=== PATIENT | male | born 1960 | race Caucasian/White ===

== ENCOUNTER 2018-08-03 08:21 | Outpatient (CLI) | END 2018-08-03 08:22 | disposition home or self-care (01) | LOC: RHC-LAB 08:21 → FCC-LAB 08:22 | PROVIDERS: ATTEND Family Medicine | DX: E11.9 Type 2 diabetes mellitus without complications (principal) | CPT/HCPCS: 36415; 83037 ==

== ENCOUNTER → 2023-12-29 11:00 | Observation (INO) ==
[2023-12-28 10:19] VITALS: BMI 65.2
[2023-12-28 10:52] LABS: ABSOLUTE RETICS # 0.0276; RETICULOCYTE % 1.22 %; RETICULOCYTE HEMOGLOBIN 28.1
[2023-12-28 11:19] LABS: IRON 25.1 ug/dL (49-181)
[2023-12-28 11:58] LABS: FOLATE 8.71 ng/mL
[2023-12-28] MEDS: PROTONIX IVP ONE (12:50)
[2023-12-28] MEDS: RIFAMPIN PO SCH (12:50)
[2023-12-28] MEDS: PROTONIX ONE (12:51)
--- NOTE | 2023-12-28 15:29 | PCM ---
Date of Service Date Seen by Provider: 12/28/23 Time Seen by Provider: 09:30 Admit Day/Time Admission Date: 12/28/23 Admission Time: 10:15 Reason for Admission Chief Complaint: ANEMIA Hospital Provider Hospital Provider: CARIN OSPINA PA-C, [facility] Primary Care Physician Primary Care Physician: MERISSA ESCOBAR MD History of Present Illness History of Present Illness: Patient is a 63 year old male with pmhx uncontrolled diabetes, hypertension, history of CABG, history of aortic valve replacement, who was recently hospitalized here for our swing bed program after hospitalization at [facility] from 12 09-12 16 for MSSA bacteremia. He is currently being treated for osteomyelitis of the left second toe and presumptive prosthetic valve endocarditis with cefazolin and rifampin. He was discharged last week from the swing bed program. He was present today to get his antibiotics and to get his weekly labs performed. We were notified by lab that his hemoglobin was 6.3. It was 7.3 last week. He denies any dark stools, abdominal pain, epigastric pain. He does state that he had a hospitalization about a year ago in which he was transfused blood but he is unsure of details of that stay. His vitals are normal. He overall states that he is feeling well. Spoke with Dr. Escobar his PCP via phone regarding the patient. It was decided to direct admit him for further workup and transfusion. Patient is agreeable. Case Discussed With Case Discussed With: Patient's case was discussed with Dr. Escobar. [facility] Medical History BMI 28.0-28.9,adult Z68.28 - Body mass index [BMI] 28.0-28.9, adult (ICD-10) Elevated hemoglobin A1c 9.07 on 06/17/21. Repeat labs requested. R73.09 - Other abnormal glucose (ICD-10) H/O: hypertension Z86.79 - Personal history of other diseases of the circulatory system (ICD- 10) Cervical stenosis of spine Lower extremity hyperreflexic. Chronic/stable. M48.02 - Spinal stenosis, cervical region (ICD-10) Surgical History Hx of cervical spine surgery Z98.890 - Other specified postprocedural states (ICD-10) Hx of replacement of aortic valve Z95.2 - Presence of prosthetic heart valve (ICD-10) H/O cardiac catheterization Z98.890 - Other specified postprocedural states (ICD-10) Family History FATHER , leukemia at age 63. Leukemia PATERNAL GRANDMOTHER Diabetes Mother No problems noted. BROTHER No problems noted. SISTER No problems noted. SISTER No problems noted. 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 Pets and animals: Yes Leisure activites: exercise (walking), hunting and fishing History of recent travel: No Sexually active: Yes Do you think of yourself as: straight/heterosexual Current gender identity: male Seatbelt use: always Drives intoxicated or rides with intoxicated driver's education instructor: No Water heater temperature set < 120 degrees: Yes Working smoke detector in home: Yes Fire extinguisher in home: No Carbon monoxide detector in home: Yes Firearms in home: Yes Allergies Allergies Allergy/AdvReac Type Severity Reaction Status Date / Time No Known Allergies Allergy Verified 09/01/23 07:16 Current Medications Home Medications aspirin 81 mg tablet,delayed release 81 mg PO DAILY 90 days #90 tab-caps 06/30/19 [Rx Confirmed 12/28/23 Last Taken Unknown] semaglutide 1 mg/dose (4 mg/3 mL) subcutaneous pen injector 1 mg (0.75 mL) subcut QWEEK #3 mL 09/01/23 [Rx Confirmed 12/28/23 Last Taken 12/12/23] blood sugar diagnostic (Blood Glucose Test strips) #50 ea 09/07/23 [Rx Confirmed 12/28/23 Last Taken Unknown] blood-glucose meter (Blood Glucose Monitoring kit) #1 ea 09/07/23 [Rx Confirmed 12/28/23 Last Taken Unknown] lancets 33 gauge #100 ea 09/07/23 [Rx Confirmed 12/28/23 Last Taken Unknown] pen needle, diabetic 32 gauge x 5/32" (BD Ultra-Fine Cinda Pen Needle) #50 ea 09/07/23 [Rx Confirmed 12/28/23 Last Taken Unknown] atorvastatin 40 mg tablet (Lipitor) 40 mg PO DAILY 90 days #90 tab-caps 10/07/23 [Rx Confirmed 12/28/23 Last Taken Unknown] empagliflozin 10 mg tablet (Jardiance) 10 mg PO QAM #30 tabs 10/07/23 [Rx Confirmed 12/28/23 Last Taken Unknown] metoprolol succinate 50 mg tablet,extended release 24 hr 50 mg PO QDAY #90 tabs 10/07/23 [Rx Confirmed 12/28/23 Last Taken Unknown] acetaminophen 325 mg capsule 650 mg PO Q6H PRN fever or pain 12/17/23 [History Confirmed 12/28/23 Last Taken Unknown] cefazolin 2 gram intravenous solution 2 g IV Q8H 12/17/23 [History Confirmed 12/28/23 Last Taken Unknown] insulin lispro 100 unit/mL subcutaneous solution (Humalog U-100 Insulin) 1 sliding scale dose subcut QID 12/17/23 [History Confirmed 12/28/23 Last Taken Unknown] insulin glargine 100 unit/mL (3 mL) subcutaneous pen 10 unit (0.1 mL) subcut BEDTIME #100 mL 12/25/23 [Rx Confirmed 12/28/23 Last Taken Unknown] insulin lispro 100 unit/mL subcutaneous pen (Humalog KwikPen (U-100) Insulin) See Protocol subcut PRN PRN hyperglycemia #100 mL 12/25/23 [Rx Confirmed 12/28/23 Last Taken Unknown] rifampin 300 mg capsule 300 mg PO Q8H 30 days #90 caps 12/25/23 [Rx Confirmed 12/28/23 Last Taken Unknown] Home Acetaminophen (Acetaminophen 325 Mg Tablet) 650 mg PO Q4H PRN PRN Reason: Mild Pain Aspirin (Aspirin 81 Mg Tablet.) 81 mg PO DAILY LINDA Atorvastatin Calcium (Atorvastatin Calcium 20 Mg Tablet) 40 mg PO DAILY LINDA Empagliflozin (Empagliflozin 10 Mg Tablet) 10 mg PO QAM [facility] Ferrous Sulfate (Ferrous Sulfate 324 Mg Tablet.Dr) 324 mg PO DAILY [facility] Cefazolin Sodium/Dextrose (Ancef 1 Gm/50 Ml D5w) 2 gm in 100 mls @ 150 mls/hr IV Q8HR [facility] Stop: 12/31/23 12:59 Last Admin: 12/28/23 16:14 Dose: 150 mls/hr Insulin Glargine (Insulin Glargine,Hum.Rec.Anlog 100 Units/Ml) 10 unit SUBCUT BEDTIME [facility] Last Admin: 12/28/23 21:18 Dose: 10 unit Metoprolol Succinate (Metoprolol Succinate 50 Mg Tab.Er.24h) 50 mg PO DAILY [facility] Pantoprazole Sodium (Pantoprazole Sodium 40 Mg Vial) 40 mg IVP DAILY [facility] Rifampin (Rifampin 150 Mg Capsule) 300 mg PO Q8HR [facility] Stop: 12/31/23 12:59 Last Admin: 12/28/23 20:18 Dose: 300 mg Discontinued Medications Pantoprazole Sodium (Pantoprazole Sodium 40 Mg Vial) 40 mg IVP ONCE ONE Stop: 12/28/23 10:36 Last Admin: 12/28/23 12:50 Dose: 40 mg Opioid Naive vs. Tolerant Does Patient Take Opioids?: No What is Opioid Naive?: *Opioid Naive implies the patient is not already taking opioids or not chronically receiving opioids on a daily basis. *PRN dosing is not "usually" associated with tolerance. *Patients are at higher risk of over-sedation and aspiration. What is Opioid Tolerant?: *Opioid Tolerance implies less than the expected response to an opioid. *Acquired tolerance is defined by the patient taking 60mg of oral morphine daily (or equianalgesic dose of another opioid) for 1 week or more. *Often associated with chronic pain. *May take more than usual dose to achieve desired pain control. Review of Systems Constitutional: Denies Fatigue or Weakness Cardiovascular: Denies Chest pain, Chest Pressure or Edema Respiratory: Denies Cough or Shortness of air Gastrointestinal: Denies Nausea, Vomiting, Vomit Coffee Ground Material, Heartburn, Black Tarry Stools, Abdominal pain or Melena Genitourinary: Denies Dysuria or Hematuria Dermatologic: Denies Rashes Neurological: Reports Problems with walking Physical examination Most Recent Vital Signs: Most Recent Vital Signs Temperature 97.8 F 12/28/23 15:13 Temperature Source Oral 12/28/23 09:49 Pulse Rate 77 12/28/23 15:13 Respiratory Rate 16 12/28/23 15:13 Blood Pressure 130/68 12/28/23 15:13 Blood Pressure Mean 88 12/28/23 15:13 Blood Pressure Left Arm 103/60 12/28/23 09:49 Blood Pressure Position Sitting 12/28/23 09:49 O2 Sat by Pulse Oximetry 95 12/28/23 09:49 Oxygen Delivery Method Room Air 12/28/23 15:00 Height 6 ft 12/28/23 10:20 Weight 218 kg 12/28/23 10:20 Telemetry Type Remote Telemetry 12/28/23 15:00 Telemetry Monitoring Continues 12/28/23 15:00 Telemetry Heart Rate 72 12/28/23 15:00 EKG NV Interval 0.24 H 12/28/23 15:00 EKG QRS Interval 0.08 12/28/23 15:00 Telemetry Strip Reading sr w/ 1st degree avb 12/28/23 15:00 Appearance: Positive No Apparent Distress and Alert and Oriented x3 Skin: Positive [place], Warm and Good Turgor; Negative Rashes HEENT: Positive Normocephalic and Atraumatic Neck: Positive Supple and Midline Trachea Chest/Lungs: Positive Clear to Auscultation Bilaterally; Negative Rales, Rhonci or Wheezes Heart: Positive RRR and Murmur GI/: Positive Soft, Nontender, Bowel Sounds Normal and No Distention Extremities: Negative Edema Neurological: Positive Cranial Nerves Intact, Alert and Oriented Psychiatric: Positive Oriented x4, Appropriate Mood and Appropriate Affect Labs This Visit Labs This Visit: Labs This Visit 12/28/23 12/28/23 08:33 10:54 Reticulocyte % (Auto) 1.22 Absolute Retic 0.0276 Retic Hgb Equivalent 28.1 Iron 25.1 L TIBC 175 L % Saturation 14 Ferritin 293.00 Vitamin B12 358 Folate 8.71 Blood Type O POSITIVE Antibody Screen Negative Crossmatch (AHG) See Detail Review Statement Review Statement: I have independently reviewed and interpreted the labs/EKGs/imaging that were ordered by the ER provider. I have reviewed all outside records that are available currently in our EMR including imaging/notes/labs from previous visits. Plan Plan: 1. Acute anemia - Noted on outpatient labs. Anemia panel ordered, iron is low. Will start supplement. Occult stool pending. 1U PRBCs ordered. Check H&H 1 hr after transfusion. Check UA, looking back at [facility] records he consistently has had blood in his urine. 2. Fpc antibiotics for osteomyelitis and possible endocarditis - Cont cefazolin and rifampin, cont outpatient f/u. 3. DMT2 - Diabetic diet, humalog sliding scale 4. Hypertension - Cont home meds 5. Hyperlipidemia - Cont home meds Reviewed hindu records. He was hospitalized last for ROSITA and anemia. No scopes done at that time. May need to f/u outpatient for further work up. DVT Prophylaxis:Ambulation Time Spent: Greater than 80 minutes spent with patient, 50% of the time spent with this patient was devoted to counseling and coordination of care. [facility] Plannin minutes spent discussing advance care planning. Admit to: Obs Discussed Plan of Care with Dr. Sukhdev Parra. Medications Medication Orders: Medications Ordered Category Date Time Status Acetaminophen [Tylenol] Meds 12/28/23 10:32 Active 650 mg PO Q4H PRN Cefazolin Sodium/Dextrose,Iso [Ancef 1 gm/50 ml D5w] Meds 12/28/23 13:00 Active 2 gm in 100 ml IV Q8HR Pantoprazole Sodium [Protonix] Meds 12/29/23 09:00 Active 40 mg IVP DAILY Rifampin Meds 12/28/23 13:00 Active 300 mg PO Q8HR
[2023-12-28 15:58] LABS: HEMATOCRIT 24.1 % (42.0-52.0); HEMOGLOBIN 7.1 g/dl (14.0-18.0)
[2023-12-28] MEDS: ANCEF 1 GM/50 ML D5W 2 GM/100 ML BAG IV SCH (16:14)
[2023-12-28 19:49] LABS: BILIRUBIN,URINE Negative (NEGATIVE); CLARITY,URINE Clear (CLEAR); COLOR,URINE Yellow (YELLOW); GLUCOSE, URINE (UA) 2+ (NEGATIVE); KETONES,URINE Trace (NEGATIVE); LEUKOCYTE ESTERASE ,URINE Negative (NEGATIVE); NITRITE,URINE Negative (NEGATIVE); PH,URINE 5.5 (5-9); PROTEIN,URINE 2+ (NEGATIVE); URINE, BLOOD 2+ (NEGATIVE); UROBILINOGEN,URINE 0.2 (0.2)
[2023-12-28 19:59] LABS: BACTERIA,URINE TRACE (NOT PRESENT); SQUAMOUS EPITHELIAL CELL,UR 0-2 (0-5); URINE WBC, MICROSCOPIC 0-2 (0-2)
[2023-12-28] MEDS: LANTUS SUBCUT SCH (21:18)
[2023-12-29 05:56] LABS: BASOPHILS % (AUTO) 0.7 % (0.0-3.0); EOSINOPHILS # (AUTO) 0.1 K/ul (0.0-0.7); HEMATOCRIT 23.9 % (42.0-52.0); HEMOGLOBIN 7.5 g/dl (14.0-18.0); IMMATURE GRANULOCYTE # (AUTO) 0.1 (0.0-1.0); LYMPHOCYTES # (AUTO) 1.1 K/uL (0.60-3.4); LYMPHOCYTES % (AUTO) 18.8 (10.0-50.0); MEAN CORPUSCULAR HEMOGLOBIN 28.2 pg (27.0-31.0); MEAN CORPUSCULAR HGB CONC 31.4 (31.8-35.4); MEAN CORPUSCULAR VOLUME 89.8 fl (80.0-94.0); MONOCYTES # (AUTO) 0.7 K/uL (0.4-2.0); MONOCYTES % (AUTO) 10.8 (0-10); NEUTROPHILS # (AUTO) 4.1 K/ul (2.0-6.9); NEUTROPHILS % (AUTO) 67.7 % (42.2-75.2); PLATELET COUNT 311 10^3/uL (140-440); RDW COEFFICIENT OF VARIATION 14.2 % (11.6-14.8); RED BLOOD COUNT 2.66 10^6/ul (4.70-6.10)
[2023-12-29 06:09] LABS: ALANINE AMINOTRANSFERASE 6.8 U/L (0-50); ALBUMIN 3.37 g/dL (3.5-5.0); ALKALINE PHOSPHATASE 108.7 U/L (56-119); BILIRUBIN,TOTAL 0.35 mg/dL (0.2-1.3); BLOOD UREA NITROGEN 20.2 mg/dL (9-20); CALCIUM 7.9 mg/dL (8.4-10.2); CARBON DIOXIDE 29.1 mmol/L (22-30.0); CHLORIDE 99.1 mmol/L (98-107); CREATININE 2.03 mg/dL (0.60-1.10); GLUCOSE 118.9 mg/dL (74-106); POTASSIUM 3.96 mmol/L (3.5-5.1); SODIUM 135.6 mmol/L (134.5-145); TOTAL PROTEIN 8.11 g/dL (6.3-8.2)
[2023-12-29] MEDS: ASPIRIN EC PO SCH (08:37)
[2023-12-29] MEDS: PROTONIX IVP SCH (08:37)
[2023-12-29] MEDS: JARDIANCE PO SCH (08:38)
[2023-12-29] MEDS: FERROUS SULFATE PO SCH (08:38)
[2023-12-29] MEDS: LIPITOR PO SCH (08:38)
[2023-12-29] MEDS: TOPROL XL PO SCH (08:38)
[2023-12-29 10:20] VITALS: BP 121/66; PULSE 87; RESP 17; TEMP 98.8
--- NOTE | 2023-12-29 10:40 | DCSUM ---
Admission Date Admission Date: 12/28/23 Discharge Date Discharge Date: 12/29/23 Admission Diagnosis Admission Diagnosis: 1. Acute anemia Discharge Diagnosis Discharge Diagnosis: 1. Acute iron deficiency anemia - improved 2. Usp antibiotics for osteomyelitis and possible endocarditis 3. DMT2 4. Hypertension 5. Hyperlipidemia Hospital Provider Hospital Provider: [facility] Primary Care Physician: MERISSA ESCOBAR MD Summary of History and Physical Summary of History and Physical: Patient is a 63 year old male with pmhx uncontrolled diabetes, hypertension, history of CABG, history of aortic valve replacement, who was recently hospitalized here for our swing bed program after hospitalization at [facility] from 12 09-12 16 for MSSA bacteremia. He is currently being treated for osteomyelitis of the left second toe and presumptive prosthetic valve endocarditis with cefazolin and rifampin. He was discharged last week from the swing bed program. He was present today to get his antibiotics and to get his weekly labs performed. We were notified by lab that his hemoglobin was 6.3. It was 7.3 last week. He denies any dark stools, abdominal pain, epigastric pain. He does state that he had a hospitalization about a year ago in which he was transfused blood but he is unsure of details of that stay. His vitals are normal. He overall states that he is feeling well. Spoke with Dr. Escobar his PCP via phone regarding the patient. It was decided to direct admit him for further workup and transfusion. Patient is agreeable. Hospital Course Subjective: Patient had additional labs drawn prior to receiving 2 units of packed RBCs. Anemia panel indicate iron deficiency with a level of 25. Started on iron supplement daily. UA does indicate some hematuria. Looking back at [facility] records the last 2-3 urinalysis in past year show hematuria as well. We discussed that he could have had a [place] at that time and it simply be traumatic. However would recommend following up on this outpatient and if still showing blood in urine may warrant a referral to urology for further workup. Also discussed to be thorough a colonoscopy and EGD would be recommended. He states he is due for colonoscopy this coming spring anyway. Discussed how this could be anemia of chronic disease given his chronic kidney disease. His hemoglobin has improved to 7.5. His vitals are stable. He is requesting to be discharged to home. Encouraged him to please follow-up with his PCP for close monitoring and to take his iron supplement in the meantime. Patient is agreeable to plan of care. Appearance: No Apparent Distress and Alert HEENT: MMM and Supple CVS: Other (RRR, +murmur ) Abdomen: Soft, Non-Tender and No Distention Respiratory: No Dyspnea Extremities: No Edema Vital Signs: Most Recent Vital Signs Temperature 98.8 F 12/29/23 10:00 Temperature Source Temporal Artery Scan 12/29/23 10:00 Pulse Rate 87 12/29/23 10:00 Respiratory Rate 17 12/29/23 10:00 Blood Pressure 121/66 12/29/23 10:00 Blood Pressure Mean 84 12/29/23 10:00 Blood Pressure Left Arm 103/60 12/28/23 09:49 Blood Pressure Location Right Arm 12/29/23 10:00 Blood Pressure Position Sitting 12/29/23 10:00 O2 Sat by Pulse Oximetry 97 12/29/23 10:00 Oxygen Delivery Method Room Air 12/29/23 10:00 Height 6 ft 12/28/23 10:20 Weight 218 kg 12/28/23 10:20 Telemetry Type Bedside Monitor 12/29/23 01:00 Telemetry Monitoring Continues 12/29/23 01:00 Telemetry Heart Rate 76 12/29/23 01:00 EKG MD Interval 0.23 H 12/29/23 01:00 EKG QRS Interval 0.07 12/29/23 01:00 EKG QT Interval 0.06 L 12/28/23 19:00 Telemetry Strip Reading SR WITH 1ST DEGREE AVB 12/29/23 01:00 Lab Results Last 24 Hours: 12/29/23 12/28/23 12/28/23 05:52 19:40 15:45 WBC 6.00 RBC 2.66 L Hgb 7.5 L 7.1 L Hct 23.9 L 24.1 L MCV 89.8 MCH 28.2 MCHC 31.4 L RDW Coeff of Leslie 14.2 Plt Count 311 Immature Gran % (Auto) 1.0 Neut % (Auto) 67.7 Lymph % (Auto) 18.8 [place] % (Auto) 10.8 H Eos % (Auto) 1.0 Baso % (Auto) 0.7 Reticulocyte % (Auto) Neut # (Auto) 4.1 Lymph # (Auto) 1.1 [place] # (Auto) 0.7 Eos # (Auto) 0.1 Baso # (Auto) 0.0 Immature Gran # (Auto) 0.1 Absolute Retic Retic Hgb Equivalent Sodium 135.6 Potassium 3.96 Chloride 99.1 Carbon Dioxide 29.1 Anion Gap 11.36 BUN 20.2 H Creatinine 2.03 H Estimated GFR (MDRD) 33.00 BUN/Creatinine Ratio 9.95 Glucose 118.9 H D Calcium 7.90 L Iron TIBC % Saturation Ferritin Total Bilirubin 0.35 AST 64.0 H ALT 6.8 Alkaline Phosphatase 108.7 Total Protein 8.11 Albumin 3.37 L Globulin 4.74 Albumin/Globulin Ratio 0.71 Vitamin B12 Folate Urine Color Yellow Urine Clarity Clear Urine pH 5.5 Ur Specific [place] 1.020 Urine Protein 2+ H Urine Glucose (UA) 2+ H Urine Ketones Trace H Urine Blood 2+ H Urine Nitrite Negative Urine Bilirubin Negative Urine Urobilinogen 0.2 Ur Leukocyte Esterase Negative Urine Microscopic RBC 10-20 Urine Microscopic WBC 0-2 Ur Squamous Epith Cells 0-2 Urine Bacteria Trace Blood Type Antibody Screen Crossmatch ([facility]) 12/28/23 12/28/23 10:54 08:33 WBC RBC Hgb Hct MCV MCH MCHC RDW Coeff of Leslie Plt Count Immature Gran % (Auto) Neut % (Auto) Lymph % (Auto) [place] % (Auto) Eos % (Auto) Baso % (Auto) Reticulocyte % (Auto) 1.22 Neut # (Auto) Lymph # (Auto) [place] # (Auto) Eos # (Auto) Baso # (Auto) Immature Gran # (Auto) Absolute Retic 0.0276 Retic Hgb Equivalent 28.1 Sodium Potassium Chloride Carbon Dioxide Anion Gap BUN Creatinine Estimated GFR (MDRD) BUN/Creatinine Ratio Glucose Calcium Iron 25.1 L TIBC 175 L % Saturation 14 Ferritin 293.00 Total Bilirubin AST ALT Alkaline Phosphatase Total Protein Albumin Globulin Albumin/Globulin Ratio Vitamin B12 358 Folate 8.71 Urine Color Urine Clarity Urine pH Ur Specific [place] Urine Protein Urine Glucose (UA) Urine Ketones Urine Blood Urine Nitrite Urine Bilirubin Urine Urobilinogen Ur Leukocyte Esterase Urine Microscopic RBC Urine Microscopic WBC Ur Squamous Epith Cells Urine Bacteria Blood Type O POSITIVE Antibody Screen Negative Crossmatch ([facility]) See Detail Discharge Instructions Discharge Planning: Discharge Planning > [address] Sukhdev Parra. Discharge Medications: Medications at Discharge (Home Meds & RX) Discharge Plan Discharge Discharge Orders: Discharge Patient (ONCE); Ordered 12/29/23 Ordered By: CARIN OSPINA Activity Restrictions/Additional Instructions: DISCHARGE TO HOME DX: ANEMIA YOU WERE GIVEN 2U OF BLOOD F/U WITH DR. ESCOBAR CONSIDER OUTPATIENT UROLOGY F/U CONSIDER OUTPATIENT COLONOSCOPY/EGD FOR FURTHER WORK UP. TAKE IRON SUPPLEMENT DAILY, IT COULD CAUSE YOUR STOOLS TO LOOK DARK Your follow up appointment with Dr. Ortiz is 12/31/23 at 11:15am. You have an appointment with [facility]. This was previously scheduled for 01/01/24 at 2:45pm. If you need to reschedule please call them directly at [phone]. They will reach out to you the day prior to confirm this appointment. Care Plan Goals: Problem: Anemia Goal: Lab values within normal limits Instructions: Monitor labs related to anemia per physician order Assess for bleeding Patient Disposition: HOME SELF-CARE Prescriptions: New ferrous sulfate 324 mg (65 mg iron) Tablet,Delayed Release (Dr/Ec) 324 mg PO DAILY Qty: 30 0RF Continued aspirin 81 mg tablet,delayed release (DR/EC) 81 mg PO DAILY 90 Days Qty: 90 1RF metoprolol succinate 50 mg tablet extended release 24 hr 50 mg PO QDAY Qty: 90 1RF atorvastatin [Lipitor] 40 mg tablet 40 mg PO DAILY 90 Days Qty: 90 2RF Jardiance 10 mg tablet 10 mg PO QAM Qty: 30 2RF acetaminophen 325 mg capsule 650 mg PO Q6H PRN (Reason: fever or pain) cefazolin 2 gram recon soln 2 g IV Q8H insulin lispro [Humalog U-100 Insulin] 100 unit/mL solution 1 sliding scale dose subcut QID Rx Instructions: 2-9 units SUBQ 4x daily before meals and nightly insulin glargine 100 unit/mL (3 mL) insulin pen 10 unit subcut BEDTIME Qty: 100 0RF rifampin 300 mg capsule 300 mg PO Q8H 30 Days Qty: 90 0RF semaglutide 1 mg/dose (4 mg/3 mL) pen injector 1 mg subcut QWEEK Qty: 3 2RF Rx Instructions: Dose increase to 1 mg daily. Discontinued insulin lispro [Humalog KwikPen Insulin] 100 unit/mL insulin pen See Protocol subcut PRN PRN (Reason: hyperglycemia) Qty: 100 0RF Protocol: [employer] Moderate Sliding Scale Condition: Glucose <150 Dose/Route: No Insulin Condition: Glucose 151-200 Dose/Route: 3 Units Condition: Glucose 201-250 Dose/Route: 5 Units Condition: Glucose 251-300 Dose/Route: 7 Units Condition: Glucose 301-350 Dose/Route: 10 Units Condition: Glucose 351-400 Dose/Route: 12 Units Condition: Glucose >401 Dose/Route: Call Provider No Action (DME) pen needle, diabetic [BD Ultra-Fine Cinda Pen Needle] 32 gauge x 5/32" needle See Rx Instructions .ROUTE .MEDSUPPLY Qty: 50 12RF Rx Instructions: As directed once daily with insulin. (DME) blood-glucose meter [Blood Glucose Monitoring] Kit See Rx Instructions .ROUTE Qty: 1 0RF Rx Instructions: As directed daily fasting (DME) Blood Glucose Test Strip See Rx Instructions .ROUTE .MEDSUPPLY Qty: 50 1RF Rx Instructions: once daily fasting. Insurance covered device. (DME) lancets 33 gauge misc See Rx Instructions .ROUTE .MEDSUPPLY Qty: 100 0RF Rx Instructions: once daily fasting and as needed Did you review [place] [employer]IST for ALL controlled substances?: Not Applicable Discussed opioids are addictive and Narcan is available by prescription or from pharmacy.: No Condition: Stable Referrals: MERISSA ESCOBAR MD [Primary Care Provider] - 01/05/24 11:30 am
[2023-12-29] MEDS: ANCEF IVP ONE (10:51)
[~2023-12-29 11:00] MED LIST: TYLENOL PO PRN
== END | disposition home or self-care (01) ==
LOC: SCU
PROVIDERS: ADMIT Hospitalist; ATTEND Physician Assistant